=== PATIENT | female | born 2000 | race African-American/Black ===

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

== ENCOUNTER 2023-01-24 10:50 | Emergency (ER) | payer BC, SELFPAY ==
[2023-01-24] MEDS ORDERED: Ketorolac Tromethamine 30 MG/ML VIAL ONE (11:20)
[2023-01-24] MEDS ORDERED: Acetaminophen 325 MG TAB ONE (11:20)
[2023-01-24] MEDS ORDERED: Lactated Ringer's 1,000 ML ONE (11:20)
[2023-01-24 11:25] LABS: Pregnancy Test - Urine (BHCG) Negative (Negative); Pregu Control Background? CLEAR/WHITE (CLR/WHITE); Pregu Control Bar Appear? YES (CONTROL BAR); Specific Gravity 1.033 (1.002-1.036)
[2023-01-24 11:58] LABS: INR-International Normal Ratio 1.1; MONO NEGATIVE CONTROL ZONE White (Negative) (White); MONO POSITIVE CONTROL Pink Line (Positive) (PINK/RED); Mononucleosis NEGATIVE (NEGATIVE); PTT 32.5 sec (22.9-36.1)
[2023-01-24 11:59] LABS: #Basophils 0.1 thou/uL (0.0-0.2); #Lymphocytes 1.1 thou/uL (1.20-3.40); #Monocytes 1.6 thou/uL (0.11-0.59); #Neutrophils 15.1 thou/uL (1.40-6.50); %Basophils 0.5 % (0.0-1.0); %Eosinophils 0.1 % (0.0-10.0); %Lymphocytes 6.2 % (28.0-48.0); %Monocytes 9.1 % (0.0-4.0); %Neutrophils 84.1 % (31.0-61.0); Anisocytosis SLIGHT = 6-15 cells (100X) (0-5/hpf); Hemoglobin 10.9 g/dL (12.0-16.0); Hypochromia SLIGHT = 6-15 cells (100X) (0-5/hpf); MDiff Complete? YES; Mean Corpuscular HGB CONC 31.4 g/dL (32.0-36.0); Mean Corpuscular Hemoglobin 21.2 pg (25.0-35.0); Mean Corpuscular Volume 67.6 fl (78.0-98.0); Microcytosis SLIGHT = 6-15 cells (100X) (0-5/hpf); Platelet Adequacy Comment Appears Adequate; Platelet Count 305 10x3/uL (130-400); RBC Distribution Width 13.5 % (11.5-14.5); Red Blood Cell (RBC) Count 5.13 mill/uL (4.00-5.20); White Blood Cell (WBC) Count 17.9 10x3/uL (4.8-10.8)
[2023-01-24 12:05] LABS: ALT (SGPT) 7 U/L (8-55); AST (SGOT) 11 U/L (5-34); Albumin 4.4 g/dL (3.5-5.0); Alkaline Phosphatase 62 U/L (40-100); Anion Gap 12 mmol/L (10-20); BUN (Urea Nitrogen) 6 mg/dL (7.0-18.7); Bilirubin, Total 0.4 mg/dL (0.2-1.2); Calc. Creatinine Clearance 0 mL/min (70-130); Calcium 9.1 mg/dL (7.8-10.44); Carbon Dioxide 23 mmol/L (22-29); Chloride 102 mmol/L (98-107); Estimated GFR 108; Globulin 3.5 g/dL (2.4-3.5); Glucose 97 mg/dL (70-105); Potassium 3.1 mmol/L (3.5-5.1); Protein, Total 7.9 g/dL (6.0-8.3); Sodium 134 mmol/L (136-145)
[2023-01-24] MEDS ORDERED: Potassium Chloride 20 MEQ TAB ONE (12:11)
[2023-01-24 12:26] LABS: Magnesium 1.6 mg/dL (1.7-2.2)
[2023-01-24] MEDS ORDERED: Magnesium Oxide 400 MG TAB ONE (12:39)
== END 2023-01-24 12:45 | disposition home or self-care (01) ==
LOC: MADERS 10:50
DX: R65.10 Systemic inflammatory response syndrome (SIRS) of non-infectious origin without acute organ dysfunction (principal); J02.9 Acute pharyngitis, unspecified; E87.6 Hypokalemia; E83.42 Hypomagnesemia; D50.9 Iron deficiency anemia, unspecified
CPT/HCPCS: 80053; 81025; 83605; 83735; 85025; 85610; 85730; 86308; 87040; 87081; 87430; 87804; 94760; 96374; J1885; J7120